=== PATIENT | female | born 1980 | race American Indian/Alaskan Native ===

== ENCOUNTER 2021-05-30 10:57 | Outpatient (CLI) | payer MEDICAID ==
[2021-05-30] MEDS ORDERED: LACTATED RINGERS 1,000 ML IV ONE (12:00)
[2021-05-30 12:49] LABS: Bacteria,Urine 2+ /HPF (Negative); Bilirubin,Urine NEG (Negative); Blood,Urine NEG (Negative); Color,Urine Yellow (Yellow); Mucus,Urine FEW /HPF; Urobilinogen,Urine < 2.0 mg/dL (<2.0)
[2021-05-30 14:29] LABS: Hematocrit 35.8 % (30.3-42.9); Hemoglobin 11.2 gm/dl (10.1-14.3); Mean Corpuscular HGB Conc 31 % (30-34); Platelet Count 166 K/mm3 (140-440); Red Blood Count 5.18 M/mm3 (3.65-5.03); Red Cell Distribution Width 18.2 % (13.2-15.2)
[2021-05-30 14:31] LABS: Mean Corpuscular Volume 69 fl (79-97)
[2021-05-30 15:30] LABS: Alanine Aminotransferase 21 units/L (7-56); Uric Acid 5.1 mg/dL (3.5-7.6)
[2021-05-30 15:44] VITALS: BP 124/64
== END 2021-05-30 16:00 | disposition home or self-care (01) ==
LOC: TRG 10:57 → APU 10:58 → TRG 16:00
PROVIDERS: ATTEND Obstetrics & Gynecology
DX: O09.893 Supervision of other high risk pregnancies, third trimester (principal); O26.893 Other specified pregnancy related conditions, third trimester; R10.9 Unspecified abdominal pain; Z3A.34 34 weeks gestation of pregnancy
CPT/HCPCS: 36415; 59025; 81001; 82565; 83615; 84450; 84460; 84550; 85027